=== PATIENT | female | born 1970 | race Caucasian/White ===

== ENCOUNTER 2023-07-31 08:42 | Outpatient (CLI) | payer MEDICAID | END 2023-07-31 23:59 | disposition home or self-care (01) | LOC: RAD 08:42 | PROVIDERS: ATTEND Registered Nurse Medical-Surgical | DX: N92.1 Excessive and frequent menstruation with irregular cycle (principal) | CPT/HCPCS: 76830; 76856; 93976 ==

== ENCOUNTER 2023-08-22 13:50 | Outpatient (CLI) | payer MEDICAID | END 2023-08-22 23:59 | disposition home or self-care (01) | LOC: RAD 13:50 | PROVIDERS: ATTEND Registered Nurse Medical-Surgical | DX: N92.1 Excessive and frequent menstruation with irregular cycle (principal) | CPT/HCPCS: 76856; 93976 ==